=== PATIENT | female | born 1985 | race Caucasian/White ===

== ENCOUNTER → 2017-10-21 | Outpatient (REF) | payer OTHER, SELFPAY | LOC: M LAB REF 17:04 | DX: R30.0 Dysuria (principal) | CPT/HCPCS: 87086 ==

== ENCOUNTER → 2017-11-06 | Outpatient (CLI) | payer OTHER ==
[2017-11-06 13:36] LABS: BASO % 0.3 % (0.0-1.0); EOS # 0.1 10^3/uL (0.0-0.50); EOS % 1.4 % (0.0-3.0); HEMATOCRIT 35.6 % (36.0-47.0); HEMOGLOBIN 11.9 g/dl (12.0-15.5); IMMATURE GRANULOCYTE % 1.5 % (0-3.0); LYMPH # 1.9 10^3/uL (1.5-4.5); LYMPH % 18.8 % (24.0-44.0); MEAN CORPUSCULAR HGB CONC 33.4 g/dl (32.0-36.5); MEAN CORPUSCULAR VOLUME 95.7 fl (80.0-96.0); MONO # 0.6 10^3/uL (0.0-0.8); MONO % 6.3 % (0.0-5.0); NEUTROPHILS % 71.7 % (36.0-66.0); PLATELET COUNT, AUTOMATED 189 10^3/uL (150-450); RED BLOOD COUNT 3.72 10^6/uL (4.00-5.40); RED CELL DISTRIBUTION WIDTH 12.9 % (11.5-14.5); WHITE BLOOD COUNT 9.8 10^3/uL (4.0-10.0)
[2017-11-06 13:46] LABS: GLUCOSE CHALLENGE TEST 1 HOUR 97 MG/DL (LESS THAN 140)
[2017-11-06 15:07] LABS: CHLAMYDIA DNA AMPLIFICATION NEGATIVE (NEGATIVE); GC DNA AMPLIFICATION NEGATIVE (NEGATIVE)
== END ==
LOC: M SMT 08:51
DX: Z34.82 Encounter for supervision of other normal pregnancy, second trimester (principal)

== ENCOUNTER → 2017-11-16 | Outpatient (CLI) | payer OTHER | LOC: M RAD 15:20 | DX: Z34.82 Encounter for supervision of other normal pregnancy, second trimester (principal) | CPT/HCPCS: 76820 ==

== ENCOUNTER → 2017-12-04 | Outpatient (REF) | payer OTHER | LOC: M LAB REF 13:12 | DX: Z34.83 Encounter for supervision of other normal pregnancy, third trimester (principal) | CPT/HCPCS: 87086 ==

== ENCOUNTER → 2018-01-26 | Outpatient (REF) | payer OTHER | LOC: M LAB REF 17:03 | DX: Z36.85 Encounter for antenatal screening for Streptococcus B (principal); Z3A.00 Weeks of gestation of pregnancy not specified | CPT/HCPCS: 87081 ==

== ENCOUNTER → 2018-11-27 | Outpatient (REF) | payer OTHER ==
[~2018-11-27] MED LIST: KEFL500C17 PO; MAPA500T2 PO; MOTR200T44 PO; PRENTAB9 PO
== END ==
LOC: M SFHCLERA 11:42
PROVIDERS: ATTEND Physician Assistant
DX: R50.9 Fever, unspecified (principal)

== ENCOUNTER 2018-11-29 00:02 | Emergency (ER) | payer OTHER ==
[~2018-11-29] VITALS: Ht 167.6 cm; Wt 72.7 kg
[2018-11-29 00:02] VITALS: BP 132/76
[~2018-11-29 00:02] MED LIST changes: -KEFL500C17 PO
[2018-11-29] MEDS ORDERED: CEPHALEXIN 500 MG CAP PO ONE (00:30)
[2018-11-29] MEDS ORDERED: KEFL500C17 PO (00:34)
== END 2018-11-29 00:42 | disposition home or self-care (01) ==
LOC: M ED 00:02
DX: J03.90 Acute tonsillitis, unspecified (principal)

== ENCOUNTER → 2018-12-04 | Outpatient (CLI) | payer OTHER ==
[~2018-12-04] MED LIST changes: +KEFL500C17 PO
--- NOTE | 2018-12-04 10:23 | REP ---
HISTORY: Cough. COMPARISON: None. FINDINGS: The superior mediastinal structures are midline. The cardiac silhouette is unremarkable in size, shape and position. The diaphragmatic surfaces of the lungs are regular and the costophrenic angles are clear. The pulmonary gallagher are clear. The imaged osseous structures are intact. IMPRESSION: There is no acute cardiopulmonary disease. Electronically Signed by Larry Velasquez DO 12/04/2018 10:35 A
== END ==
LOC: M LRY 09:31
PROVIDERS: ATTEND Physician Assistant
DX: R05 Cough (principal)
CPT/HCPCS: 71046; G0463